=== PATIENT | female | born 1955 | race Caucasian/White ===

== ENCOUNTER 2019-11-05 10:30 | Emergency (ER) | payer MEDICARE ==
[~2019-11-05] VITALS: Ht 165.1 cm; Wt 77.1 kg
[2019-11-05] MEDS ORDERED: PRILOSEC OTC20 MG PO (11:01)
[2019-11-05] MEDS ORDERED: LEVO-T50 MCG PO (11:01)
[2019-11-05] MEDS ORDERED: CELEXA 20 MG TA20 MG PO (11:01)
[2019-11-05] MEDS ORDERED: NORCO 10-325 T1 EACH PO (11:01)
[2019-11-05 11:59] VITALS: BP 115/82
== END 2019-11-05 12:01 | disposition home or self-care (01) ==
LOC: M.ERS 10:30
DX: J02.9 Acute pharyngitis, unspecified (principal); Z20.828 Contact with and (suspected) exposure to other viral communicable diseases; Z88.2 Allergy status to sulfonamides; Z88.6 Allergy status to analgesic agent; Z88.8 Allergy status to other drugs, medicaments and biological substances

== ENCOUNTER → 2020-01-06 | Outpatient (CLI) | payer MEDICARE ==
[~2020-01-06] MED LIST: CELEXA 20 MG TA20 MG PO; LEVO-T50 MCG PO; NORCO 10-325 T1 EACH PO; PRILOSEC OTC20 MG PO
[2020-01-06 10:11] LABS: CREATININE 0.7 mg/dL (0.6-1.3)
== END ==
LOC: M.LAB 09:39 → M.CT 11:00
PROVIDERS: ATTEND Specialist
DX: N28.1 Cyst of kidney, acquired (principal); K76.89 Other specified diseases of liver; M25.78 Osteophyte, vertebrae; I70.0 Atherosclerosis of aorta